=== PATIENT | female | born 1975 ===

== ENCOUNTER 2023-09-10 15:07 | Outpatient (RCR) | payer SELFPAY | END 2023-09-10 23:59 | disposition home or self-care (01) | LOC: ROT 15:07 | PROVIDERS: ATTENDING PHYSICIAN Orthopaedic Surgery | DX: S63.642D Sprain of metacarpophalangeal joint of left thumb, subsequent encounter (principal); W19.XXXD Unspecified fall, subsequent encounter; M79.642 Pain in left hand; Z73.6 Limitation of activities due to disability | CPT/HCPCS: 97010; 97018; 97110; 97140; 97166 ==

== ENCOUNTER 2023-10-01 11:30 | Outpatient (RCR) | payer SELFPAY | END 2023-10-01 23:59 | disposition home or self-care (01) | LOC: ROT 11:30 | PROVIDERS: ATTENDING PHYSICIAN Orthopaedic Surgery | DX: M79.642 Pain in left hand (principal); Z73.6 Limitation of activities due to disability | CPT/HCPCS: 97018; 97110; 97140 ==